=== PATIENT | male | born 1965 | race Caucasian/White ===

== ENCOUNTER → 2016-10-14 | Outpatient (CLI) | payer BC ==
[~2016-10-14] MED LIST: FENO145T32 PO; ZOLP10TA5 PO
[2016-10-14 14:47] LABS: HEMOGLOBIN 16.7 g/dL (13.7-18.0)
[2016-10-14 15:03] LABS: BLOOD UREA NITROGEN 19 mg/dL (7-18)
== END | disposition home or self-care (01) ==
LOC: STAR 13:32
PROVIDERS: ATTEND Neurological Surgery
DX: Z01.811 Encounter for preprocedural respiratory examination (principal); M48.06 Spinal stenosis, lumbar region; R79.1 Abnormal coagulation profile
CPT/HCPCS: 36415; 71020; 80048; 81003; 85025; 85610; 85730; 93005

== ENCOUNTER → 2017-05-10 | Outpatient (CLI) | payer BC ==
[~2017-05-10] MED LIST changes: +CYCL-259 PO; +DIAZ5TAB4 PO; +FENO130C6 PO; +HYDR2TAB40 PO; +ZOLP12.54 PO
[2017-05-10 10:38] LABS: HEMOGLOBIN 16.9 g/dL (13.7-18.0); WHITE BLOOD COUNT 5.8 x10^3/uL (3.4-10)
[2017-05-10 10:51] LABS: BLOOD UREA NITROGEN 22 mg/dL (7-18)
== END | disposition home or self-care (01) ==
LOC: STAR 09:34
PROVIDERS: ATTEND Neurological Surgery
DX: Z01.818 Encounter for other preprocedural examination (principal); E78.00 Pure hypercholesterolemia, unspecified; M48.061 Spinal stenosis, lumbar region without neurogenic claudication; R79.1 Abnormal coagulation profile
CPT/HCPCS: 36415; 71020; 80048; 81003; 85025; 85610; 85730; 93005

== ENCOUNTER 2017-05-26 07:19 | Observation (INO) | payer BC ==
[~2017-05-26] VITALS: Ht 185.4 cm; Wt 129.0 kg
[~2017-05-26 07:19] MED LIST changes: +BACITRACIN 50,000 UNIT ONE; +BUPIVACAINE/PF 0.25% ONE; +BUPIVACAINE/PF 0.5% ONE; +EPINEPHRINE 1 MG/ML, 1ML ONE; +THROMBIN 5,000 UNIT VIAL TP ONE
[2017-05-26] MEDS ORDERED: MIDAZOLAM 1 MG/ML, 2ML ONE (10:13)
[2017-05-26] MEDS ORDERED: FENTANYL PF 100 MCG/2ML ONE ×3 (10:13→13:26)
[2017-05-26] MEDS ORDERED: BUPIVACAINE/PF 0.5% INFIL ONE (11:51)
[2017-05-26] MEDS ORDERED: EPINEPHRINE 1 MG/ML, 1ML INFIL ONE (11:52)
[2017-05-26] MEDS ORDERED: LABETALOL 5MG/ML, 20ML IV PRN (12:30)
[2017-05-26] MEDS ORDERED: PROMETHAZINE 25 MG/ML, 1ML IV PRN (12:30)
[2017-05-26] MEDS ORDERED: FENTANYL PF 100 MCG/2ML IV PRN (12:30)
[2017-05-26] MEDS ORDERED: EPHEDRINE 50 MG/ML, 1ML IVPush PRN (12:30)
[2017-05-26] MEDS ORDERED: METOPROLOL 1 MG/ML, 5ML IV PRN (12:30)
[2017-05-26] MEDS ORDERED: DIAZEPAM 5 MG/ML, 2ML IVPush PRN (12:30)
[2017-05-26] MEDS ORDERED: MIDAZOLAM 1 MG/ML, 2ML IV PRN (12:30)
[2017-05-26] MEDS ORDERED: MEPERIDINE/PF 25MG/0.5ML IVPush PRN (12:30)
[2017-05-26] MEDS ORDERED: ACETAMINOPHEN 325 MG TABLET PO PRN (12:30)
[2017-05-26] MEDS ORDERED: ALBUTEROL SULFATE 2.5 MG/3 ML NPPB PRN (12:30)
[2017-05-26] MEDS ORDERED: ONDANSETRON 2MG/ML, 2ML IVPush PRN (12:30)
[2017-05-26] MEDS ORDERED: hydrALAzine 20 MG/ML, 1ML IV PRN (12:30)
[2017-05-26] MEDS ORDERED: OXYcodone 5 MG/5 ML ORAL.SOL UDC PO PRN (12:30)
[2017-05-26] MEDS ORDERED: BUPIVACAINE/PF 0.5% ONE (12:44)
[2017-05-26] MEDS ORDERED: GLYCOPYRROLATE 0.2MG/1ML, 5ML ONE (12:47)
[2017-05-26] MEDS ORDERED: PROPOFOL 10 MG/ML, 20ML ONE (12:47)
[2017-05-26] MEDS ORDERED: ONDANSETRON 2MG/ML, 2ML ONE (12:47)
[2017-05-26] MEDS ORDERED: NEOSTIGMINE 1 MG/ML, 10ML ONE (12:47)
[2017-05-26] MEDS ORDERED: ROCURONIUM 10 MG/ML,10ML ONE (12:47)
[2017-05-26] MEDS ORDERED: SUCCINYLCHOLINE 20 MG/ML, 10ML ONE (12:47)
[2017-05-26] MEDS ORDERED: DEXAMETHASONE 4 MG/ML, 1ML ONE (12:47)
[2017-05-26] MEDS ORDERED: CEFAZOLIN 1,000 MG ONE (12:47)
[2017-05-26] MEDS ORDERED: HYDROmorphone 2 MG/ML, 1ML ONE (13:26)
[2017-05-26] MEDS: HYDROmorphone 1 MG/ML, 1ML IV PRN ×4 (13:30→14:10)
[2017-05-26] MEDS ORDERED: HYDROmorphone PCA 30 MG/30 ML ONE (14:25)
[2017-05-26] MEDS ORDERED: HYDROmorphone PCA 30 MG/30 ML IV PRN ×2 (14:30→15:30)
[2017-05-26] MEDS ORDERED: DIAZEPAM 5 MG TABLET PO PRN (15:30)
[2017-05-26] MEDS ORDERED: MAGNESIUM HYDROXIDE 8%, 30ML UDC PO PRN (15:30)
[2017-05-26] MEDS ORDERED: morphine SULFATE 10 MG/ML, 1ML IV PRN (15:30)
[2017-05-26] MEDS ORDERED: BISACODYL 10 MG SUPP PR PRN (15:30)
[2017-05-26] MEDS: TIZANIDINE 4MG TABLET PO SCH ×2 (16:17→23:03)
[2017-05-26] MEDS: NS + 20MEQ KCL 1,000 ML IV SCH ×2 (16:17→23:05)
[2017-05-26] MEDS: CEFAZOLIN PMX 1GM/50ML 50 ML IVPB SCH (18:30)
[2017-05-26 19:48] VITALS: BP 122/70
[2017-05-26 23:51] VITALS: BP 123/70
[2017-05-27 03:01] VITALS: BP 106/64
[2017-05-27] MEDS: CEFAZOLIN PMX 1GM/50ML 50 ML IVPB SCH (03:01)
[2017-05-27 07:29] VITALS: BP 108/68
[2017-05-27] MEDS ORDERED: SENNA/DOCUSATE TABLET PO SCH (09:00)
[2017-05-27] MEDS ORDERED: HYDR2TAB40 PO (09:02)
[2017-05-27] MEDS ORDERED: TIZA4TAB PO (09:02)
[2017-05-27] MEDS: HYDROmorphone 2MG TABLET PO PRN ×2 (09:57→20:51)
[2017-05-27] MEDS: FENOFIBRATE 145 MG TABLET PO SCH (09:57)
[2017-05-27] MEDS: TIZANIDINE 4MG TABLET PO SCH ×3 (09:57→23:11)
[2017-05-27] MEDS: NS + 20MEQ KCL 1,000 ML IV SCH ×2 (11:30→19:55)
[2017-05-27 13:45] VITALS: BP 95/56
[2017-05-27 19:00] VITALS: BP 107/70
[2017-05-28] MEDS: HYDROmorphone 2MG TABLET PO PRN ×3 (00:59→08:45)
[2017-05-28 02:20] VITALS: BP 117/75
[2017-05-28] MEDS ORDERED: DIAZ5TAB PO (04:45)
[2017-05-28] MEDS ORDERED: DIAZEPAM 5 MG TABLET PO SCH (06:00)
[2017-05-28] MEDS: NS + 20MEQ KCL 1,000 ML IV SCH (07:30)
[2017-05-28] MEDS: FENOFIBRATE 145 MG TABLET PO SCH (07:43)
[2017-05-28] MEDS: TIZANIDINE 4MG TABLET PO SCH (07:43)
[2017-05-28 08:42] VITALS: BP 117/75
[2017-05-28] MEDS ORDERED: SENNA/DOCUSATE TABLET PO SCH (09:00)
== END 2017-05-28 10:25 | disposition home or self-care (01) ==
LOC: OUT 07:19 → 4NOR 14:47 → OUT 23:15 → 4NOR 23:16
PROVIDERS: ADMIT Neurological Surgery; ATTEND Neurological Surgery
DX: M48.061 Spinal stenosis, lumbar region without neurogenic claudication (principal); M54.17 Radiculopathy, lumbosacral region
CPT/HCPCS: 63047; 63048; 72100; 96365; 96375; 97161; 97165; 97530; G0378; G8978; G8979; G8980; J0171; J0330; J0690; J1100; J1170; J2250; J2405; J2704; J2710; J3010; J3480; J3490